=== PATIENT | female | born 1945 | race African-American/Black ===

== ENCOUNTER 2021-05-10 01:58 | Emergency (ER) | payer OTHER ==
[2021-05-10] MEDS ORDERED: NA CHLORIDE 0.9% 1,000 ML ONE (02:51)
[2021-05-10 03:21] LABS: Absolute Lymphocytes (CBC) 2.1 K/uL (0.7-4.9); Basophils % 0.6 % (0-1.3); Hematocrit 32.2 % (36.0-45.0); Lymphocytes % 19.5 % (15.3-44.8)
[2021-05-10 03:38] LABS: ALT/SGPT 20 U/L (12-78); AST/SGOT 14 U/L (15-37); Albumin 3.3 g/dL (3.4-5.0); Alkaline Phosphatase 50 U/L (45-117); BUN Blood Urea Nitrogen 27 mg/dL (7-18); Bicarbonate 24 mmol/L (21-32); Bilirubin Direct < 0.1 mg/dL (0-0.2); Bilirubin Total 0.2 mg/dL (0.2-1.0); Glucose Level 114 mg/dL (74-106); Lipase 93 U/L (73-393); Potassium 4.2 mmol/L (3.5-5.1); Protein, Total 7.6 g/dL (6.4-8.2); Sodium Level 141 mmol/L (136-145)
[2021-05-10 03:58] LABS: Urine Blood Negative (Negative); Urine Glucose Negative (Negative); Urine Protein Negative (Negative); Urine Specific Gravity 1.015 (1.005-1.030)
--- NOTE | 2021-05-10 05:34 | ER ---
Nurse's Notes [facility] Name: Adam Coppola Age: 75 yrs Sex: Female : 1945 Arrival Date: 05/10/2021 Time: 02:02 Bed 13 Private MD: Diagnosis: Flank pain, right;Cholelithiasis Presentation: 05/10 02:27 Chief complaint: Patient states: Reports right side discomfort x 4 days, states "When lp1 in lay on my right side, I feel like something is trying to pop out"; Denies N/V. Coronavirus screen: At this time, the client does not indicate any symptoms associated with coronavirus-19. Ebola Screen: No symptoms or risks identified at this time. Initial Sepsis Screen: Does the patient meet any 2 criteria? No. Patient's initial sepsis screen is negative. Does the patient have a suspected source of infection? No. Patient's initial sepsis screen is negative. Risk Assessment: Do you want to hurt yourself or someone else? Patient reports no desire to harm self or others. Onset of symptoms was May 10, 2021. 02:27 Method Of Arrival: Ambulatory lp1 02:27 Acuity: CHEMO 3 lp1 Triage Assessment: 03:07 General: Appears in no apparent distress. comfortable, obese. Pain: Pain currently is 3 sv1 out of 10 on a pain scale. 03:07 General: Appears in no apparent distress. comfortable, Behavior is calm, cooperative. mk EENT: No signs and/or symptoms were reported regarding the EENT system. Neuro: Level of Consciousness is awake, alert, obeys commands, Oriented to person, place, time, situation, Fashion Stylist are equal bilaterally Moves all extremities. Cardiovascular: Capillary refill < 3 seconds Clubbing of nail beds is absent Pulses are 2+ in right radial artery, right dorsalis pedis artery, left radial artery and left dorsalis pedis artery Rhythm is atrial fibrillation. Respiratory: Airway is patent Trachea midline Respiratory effort is even, unlabored, Respiratory pattern is regular, symmetrical, Breath sounds are clear bilaterally. GI: Abdomen is flat, non-distended, Bowel sounds present X 4 quads. Abd is soft and non tender. GI: Reports lower abdominal pain, diarrhea, Pain is 5 out of 10 on a pain scale. reports RUQ/RLQ abdominal pain 3-4 days, along with diarrhea (ongoing problem). States it feels like 'something dropped' on the R side of the abdomen, rates pain 5/10. States pain is worse when laying on the R side, relieved when takes weight off that side. : No signs and/or symptoms were reported regarding the genitourinary system. Urine is clear. Derm: Skin is intact, is healthy with good turgor, Skin is dry, Skin is pink, warm \\T\\ dry. Skin temperature is warm. Musculoskeletal: Range of motion: intact in all extremities. Historical: - Allergies: 02:42 Lisinopril; lp1 02:42 GABAPENTIN; lp1 - Home Meds: 02:42 Eliquis 5 mg oral tab 1 tab 2 times per day [Active]; furosemide 80 mg Oral tab 1 tab 2 lp1 times per day [Active]; pravastatin 80 mg oral tab 1 tab once daily [Active]; spironolactone 50 mg Oral tab 1 tab once daily [Active]; metformin 1,000 mg Oral tr24 1 tab 2 times per day [Active]; allopurinol 300 mg Oral tab 1 tab once daily [Active]; Betapace 80 mg oral tab 1 tab 2 times per day [Active]; losartan 25 mg oral tab 1 tab once daily [Active]; iron 65mg M/W/ [Active]; Januvia 100 mg oral tab 1 tab once daily [Active]; glimepiride 2 mg Oral tab 1 tab once daily [Active]; - PMHx: 02:42 Diabetes mellitus; CHF; Hypertensive disorder; Atrial fibrillation; HLD; Gallstones; lp1 - PSHx: 02:42 hysterectomy; lp1 - Immunization history:: Adult Immunizations up to date. - Social history:: Smoking status: Patient denies any tobacco usage or history of. Screenin:49 Abuse screen: Denies threats or abuse. Denies injuries from another. Nutritional lp1 screening: No deficits noted. Tuberculosis screening: No symptoms or risk factors identified. Fall Risk None identified. Assessment: 04:06 Reassessment: No changes from previously documented assessment. Patient and/or family mk updated on plan of care and expected duration. Pain level reassessed. Patient is alert, oriented x 3, equal unlabored respirations, skin warm/dry/pink. Vital Signs: 02:27 BP 99 / 63; Pulse 86; Resp 18; Temp 97.9(O); Pulse Ox 100% on R/A; Weight 78.93 kg (R); lp1 Height 5 ft. 5 in. (165.10 cm); Pain 0/10; 03:15 BP 98 / 63; Pulse 84; Resp 21; Temp 98.74; Pulse Ox 100% ; sv1 03:45 BP 99 / 72; Pulse 81; Resp 18; Pulse Ox 98% on R/A; mk 04:15 BP 100 / 79; Pulse 56; Resp 18; Pulse Ox 99% on R/A; mk 04:45 BP 117 / 55; Pulse 74; Resp 18; Pulse Ox 100% on R/A; mk 05:20 BP 104 / 66; Pulse 66; Resp 18; Pulse Ox 98% on R/A; mk 05:43 BP 107 / 70; Pulse 72; Resp 18; Pulse Ox 98% on R/A; mk 02:27 Body Mass Index 28.95 (78.93 kg, 165.10 cm) lp1 [place] Coma Score: 03:15 Eye Response: spontaneous(4). Verbal Response: oriented(5). Motor Response: obeys commands(6). Total: 15. 03:45 Eye Response: spontaneous(4). Verbal Response: oriented(5). Motor Response: obeys mk commands(6). Total: 15. 04:15 Eye Response: spontaneous(4). Verbal Response: oriented(5). Motor Response: obeys mk commands(6). Total: 15. 05:18 Eye Response: spontaneous(4). Verbal Response: oriented(5). Motor Response: obeys mk commands(6). Total: 15. 05:43 Eye Response: spontaneous(4). Verbal Response: oriented(5). Motor Response: obeys mk commands(6). Total: 15. ED Course: 02:02 Patient arrived in ED. ja2 02:17 Gary Wolff MD is Attending Physician. mh7 02:27 Nohemi Marte, RN is Primary Nurse. mk 02:41 Triage completed. lp1 02:42 Arm band placed on. lp1 02:45 Patient has correct armband on for positive identification. Allergy band placed. Bed in mk low position. Call light in reach. Side rails up X 1. supervisor hide house on. Pulse ox on. NIBP on. 02:58 Basic Metabolic Panel Sent. mk 02:59 CBC with Diff Sent. mk 02:59 Hepatic Function Sent. mk 03:00 Maintain EMS IV. Dressing intact. Site clean \\T\\ dry. Gauge \\T\\ site: 20G LAC. mk 03:50 Assisted to bathroom. mk 04:03 No provider procedures requiring assistance completed. Inserted saline lock: 20 gauge mk in right antecubital area, using aseptic technique. 04:14 Abdomen In Process Unspecified. EDMS 04:48 Urine Dipstick-Ancillary Sent. sv1 05:21 US Abdomen Limited In Process Unspecified. EDMS 05:32 Derian Vargas MD is Referral Physician. 7 05:45 IV discontinued, intact, bleeding controlled, No redness/swelling at site. mk Administered Medications: 02:59 CANCELLED (change order to 500ccc): NS 0.9% 1000 ml IV at 1000 ml once mk 03:06 Drug: Sodium Chloride 0.9% 500 ml Route: IVPB; Site: right antecubital; sv1 04:01 Follow up: Response: No adverse reaction; IV Status: Completed infusion; IV Intake: mk 500ml 05:06 Follow up: Response: No adverse reaction; IV Status: Completed infusion; IV Intake: mk 500ml 04:01 CANCELLED (Duplicate Order): Sodium Chloride 0.9% 500 ml IVPB once mk Intake: 04:01 IV: 500ml; Total: 500ml. mk 05:06 IV: 500ml; Total: 1000ml. Outcome: 05:33 Discharge ordered by . [facility] 05:44 Discharged to home ambulatory. mk 05:44 Condition: stable 05:44 Discharge instructions given to patient. 06:04 Patient left the ED. mk Signatures: Dispatcher [employer] EDMS Ashleigh Kim RN RN lp1 Gary Wolff MD MD 7 Kenzie Rivera Steven, RN RN sv1 Nohemi Marte RN RN milena Corrections: (The following items were deleted from the chart) 04:00 03:00 Sodium Chloride 0.9% 500 ml IVPB in right antecubital mk 04:00 03:59 Response: No adverse reaction; IV Intake: 500ml mk
--- NOTE | 2021-05-10 05:34 | EDPHYS ---
Physician Documentation [facility] Name: Adam Coppola Age: 75 yrs Sex: Female : 1945 Arrival Date: 05/10/2021 Time: 02:02 Bed 13 Private MD: ED Physician Gary Wolff HPI: 05/10 02:45 This 75 yrs old Black Female presents to ER via Ambulatory with complaints of RIGHT mh7 SIDE DISCOMFORT. 02:45 The patient complains of pain in the right flank. mh7 02:45 The pain does not radiate. Onset: The symptoms/episode began/occurred 4 day(s) ago. mh7 Modifying factors: The symptoms are alleviated by nothing. the symptoms are aggravated by movement, palpation/percussion. Associated signs and symptoms: Pertinent negatives: diarrhea, dizziness, dysuria, fever, urinary frequency, headache, hematuria, nausea, pain radiating to the lower extremities, vomiting. Severity of pain: At its worst the pain was moderate 3 day(s) ago, in the emergency department the pain has improved moderately. Historical: - Allergies: 02:42 Lisinopril; lp1 02:42 GABAPENTIN; lp1 - Home Meds: 02:42 Eliquis 5 mg oral tab 1 tab 2 times per day [Active]; furosemide 80 mg Oral tab 1 tab 2 lp1 times per day [Active]; pravastatin 80 mg oral tab 1 tab once daily [Active]; spironolactone 50 mg Oral tab 1 tab once daily [Active]; metformin 1,000 mg Oral tr24 1 tab 2 times per day [Active]; allopurinol 300 mg Oral tab 1 tab once daily [Active]; Betapace 80 mg oral tab 1 tab 2 times per day [Active]; losartan 25 mg oral tab 1 tab once daily [Active]; iron 65mg M/W/ [Active]; Januvia 100 mg oral tab 1 tab once daily [Active]; glimepiride 2 mg Oral tab 1 tab once daily [Active]; - PMHx: 02:42 Diabetes mellitus; CHF; Hypertensive disorder; Atrial fibrillation; HLD; Gallstones; lp1 - PSHx: 02:42 hysterectomy; lp1 - Immunization history:: Adult Immunizations up to date. - Social history:: Smoking status: Patient denies any tobacco usage or history of. ROS: 02:45 Constitutional: Negative for fever, chills, and weight loss, Eyes: Negative for injury, mh7 pain, redness, and discharge, ENT: Negative for injury, pain, and discharge, Neck: Negative for injury, pain, and swelling, Cardiovascular: Negative for chest pain, palpitations, and edema, Respiratory: Negative for shortness of breath, cough, wheezing, and pleuritic chest pain, : Negative for injury, bleeding, discharge, and swelling, MS/Extremity: Negative for injury and deformity, Skin: Negative for injury, rash, and discoloration, Neuro: Negative for headache, weakness, numbness, tingling, and seizure, Psych: Negative for depression, anxiety, suicide ideation, homicidal ideation, and hallucinations, Allergy/Immunology: Negative for hives, rash, and allergies, Endocrine: Negative for neck swelling, polydipsia, polyuria, polyphagia, and marked weight changes, Hematologic/Lymphatic: Negative for swollen nodes, abnormal bleeding, and unusual bruising. Exam: 02:45 Constitutional: This is a well developed, well nourished patient who is awake, alert, mh7 and in no acute distress. Head/Face: Normocephalic, atraumatic. Eyes: Pupils equal round and reactive to light, extra-ocular motions intact. Lids and lashes normal. Conjunctiva and sclera are non-icteric and not injected. Cornea within normal limits. Periorbital areas with no swelling, redness, or edema. ENT: Nares patent. No nasal discharge, no septal abnormalities noted. Tympanic membranes are normal and external auditory canals are clear. Oropharynx with no redness, swelling, or masses, exudates, or evidence of obstruction, uvula midline. Mucous membranes moist. Neck: Trachea midline, no thyromegaly or masses palpated, and no cervical lymphadenopathy. Supple, full range of motion without nuchal rigidity, or vertebral point tenderness. No Meningismus. Chest/axilla: Normal chest wall appearance and motion. Nontender with no deformity. No lesions are appreciated. Cardiovascular: Regular rate and rhythm with a normal S1 and S2. No gallops, murmurs, or rubs. Normal PMI, no JVD. No pulse deficits. Respiratory: Lungs have equal breath sounds bilaterally, clear to auscultation and percussion. No rales, rhonchi or wheezes noted. No increased work of breathing, no retractions or nasal flaring. Skin: Warm, dry with normal turgor. Normal color with no rashes, no lesions, and no evidence of cellulitis. MS/ Extremity: Pulses equal, no cyanosis. Neurovascular intact. Full, normal range of motion. Neuro: Awake and alert, GCS 15, oriented to person, place, time, and situation. Cranial nerves II-XII grossly intact. Motor strength 5/5 in all extremities. Sensory grossly intact. Cerebellar exam normal. Normal gait. Psych: Awake, alert, with orientation to person, place and time. Behavior, mood, and affect are within normal limits. 02:45 Abdomen/GI: Inspection: abdomen appears normal, Bowel sounds: normal, in all quadrants, mh7 Palpation: mild abdominal tenderness, in the right upper quadrant, mass, is not appreciated, rebound tenderness, is not appreciated, voluntary guarding, is not appreciated, involuntary guarding, is not appreciated, no appreciated organomegaly, Rectal exam: the exam is deferred, because of patient request, Indicators: McBurney's point is not tender, Gregory's sign is negative, Rovsing's sign is negative, Obturator sign is negative, Psoas sign is negative, Liver: no appreciated palpable abnormalities, Hernia: not appreciated. 02:45 Back: normal spinal alignment noted, CVA tenderness, is absent, vertebral tenderness, is not appreciated, muscle spasm, is not present. Vital Signs: 02:27 BP 99 / 63; Pulse 86; Resp 18; Temp 97.9(O); Pulse Ox 100% on R/A; Weight 78.93 kg (R); lp1 Height 5 ft. 5 in. (165.10 cm); Pain 0/10; 03:15 BP 98 / 63; Pulse 84; Resp 21; Temp 98.74; Pulse Ox 100% ; sv1 03:45 BP 99 / 72; Pulse 81; Resp 18; Pulse Ox 98% on R/A; mk 04:15 BP 100 / 79; Pulse 56; Resp 18; Pulse Ox 99% on R/A; mk 04:45 BP 117 / 55; Pulse 74; Resp 18; Pulse Ox 100% on R/A; mk 05:20 BP 104 / 66; Pulse 66; Resp 18; Pulse Ox 98% on R/A; mk 05:43 BP 107 / 70; Pulse 72; Resp 18; Pulse Ox 98% on R/A; mk 02:27 Body Mass Index 28.95 (78.93 kg, 165.10 cm) lp1 [place] Coma Score: 03:15 Eye Response: spontaneous(4). Verbal Response: oriented(5). Motor Response: obeys mk commands(6). Total: 15. 03:45 Eye Response: spontaneous(4). Verbal Response: oriented(5). Motor Response: obeys mk commands(6). Total: 15. 04:15 Eye Response: spontaneous(4). Verbal Response: oriented(5). Motor Response: obeys mk commands(6). Total: 15. 05:18 Eye Response: spontaneous(4). Verbal Response: oriented(5). Motor Response: obeys mk commands(6). Total: 15. 05:43 Eye Response: spontaneous(4). Verbal Response: oriented(5). Motor Response: obeys mk commands(6). Total: 15. MDM: 05:29 Differential diagnosis: nephrolithiasis, pyelonephritis, UTI, diverticulitis. Data [facility] reviewed: vital signs, nurses notes, lab test result(s), CBC, electrolytes, urinalysis, EKG, radiologic studies, CT scan, ultrasound. Data interpreted: Pulse oximetry: on room air is 98 %. Interpretation: normal. Counseling: I had a detailed discussion with the patient and/or guardian regarding: the historical points, exam findings, and any diagnostic results supporting the discharge/admit diagnosis, lab results, radiology results, the need for outpatient follow up, a general surgeon, to return to the emergency department if symptoms worsen or persist or if there are any questions or concerns that arise at home. Response to treatment: the patient's symptoms have resolved after treatment, the patient's blood pressure is in an acceptable range, mental status has returned to baseline, the patient no longer shows bradycardia, the patient is not short of breath, the patient is not tachycardic, the patient's pain is gone, the patient's temperature has normalized. 05:31 Refusal of service: The patient/guardian displays adequate decision making capability [facility] and despite a detailed discussion of alternatives, benefits, risks, and consequences refuses: Medications. 05:33 Patient medically screened. [facility] 05/10 02:38 Order name: Basic Metabolic Panel; Complete Time: 03:43 [facility] 05/10 02:38 Order name: CBC with Diff; Complete Time: 03:43 [facility] 05/10 02:38 Order name: Hepatic Function; Complete Time: 03:43 [facility] 05/10 02:38 Order name: Lipase; Complete Time: 03:43 [facility] 05/10 03:58 Order name: Urine Dipstick-Ancillary [facility] 05/10 02:38 Order name: IV Saline Lock; Complete Time: 02:58 [facility] 05/10 02:38 Order name: Labs collected and sent; Complete Time: 02:58 [facility] 05/10 02:38 Order name: EKG; Complete Time: 02:39 [facility] 05/10 03:58 Order name: Abdomen [facility] 05/10 04:59 Order name: US Abdomen Limited [facility] 05/10 02:38 Order name: Urine Dipstick-Ancillary (obtain specimen); Complete Time: 04:01 [facility] 05/10 02:38 Order name: EKG - Nurse/Tech; Complete Time: 02:59 [facility] Administered Medications: 02:59 CANCELLED (change order to 500ccc): NS 0.9% 1000 ml IV at 1000 ml once mk 03:06 Drug: Sodium Chloride 0.9% 500 ml Route: IVPB; Site: right antecubital; sv1 04:01 Follow up: Response: No adverse reaction; IV Status: Completed infusion; IV Intake: mk 500ml 05:06 Follow up: Response: No adverse reaction; IV Status: Completed infusion; IV Intake: mk 500ml 04:01 CANCELLED (Duplicate Order): Sodium Chloride 0.9% 500 ml IVPB once mk Disposition Summary: 05/10/21 05:33 Discharge Ordered Location: Home [facility] Problem: an acute exacerbation [facility] Symptoms: have improved [facility] Condition: Stable [facility] Diagnosis - Flank pain, right [facility] - Cholelithiasis [facility] Followup: [facility] - With: Private Physician - When: 1 - 2 days - Reason: Worsening of condition, Recheck today's complaints, Continuance of care, Re-evaluation by your physician Followup: [facility] - With: Derian Vargas MD - When: 1 - 2 days - Reason: Worsening of condition, Recheck today's complaints Discharge Instructions: - Discharge Summary Sheet 7 - Cholelithiasis, [id number] 7 - Flank Pain, Adult, [id number] [facility] Forms: - Medication Reconciliation Form 7 - Thank You Letter [facility] - Antibiotic Education [facility] - Prescription Opioid Use [facility] Prescriptions: - dicyclomine 10 mg Oral Capsule - take 1 capsule by ORAL route 4 times per day As needed; 20 capsule; Refills: 0, mh7 Product Selection Permitted Signatures: Dispatcher [employer] EDMS Ashleigh iKm, RN RN lp1 Gary Wolff MD MD 7 Thuan Doan RN RN sv1 Nohemi Marte RN RN mk Corrections: (The following items were deleted from the chart) 02:48 02:45 The patient presents with [place] [id number] 02:59 02:39 NS 0.9% 1000 ml IV at 1000 ml once ordered. [facility] 03:58 02:40 Abdomen Pelvis W Con+CT.RAD.BRZ ordered. EDMS EDMS 04:01 03:00 Sodium Chloride 0.9% 500 ml IVPB once ordered. [facility] 04:01 03:00 Sodium Chloride 0.9% 500 ml IVPB once given. [facility] 04:01 04:00 Sodium Chloride 0.9% 500 ml IVPB once ordered. [facility]
[2021-05-10 06:11] VITALS: TEMP 97.9
[2021-05-10 06:33] VITALS: O2SAT 98
[2021-05-10 06:35] VITALS: BP 107/70
--- NOTE | 2021-05-10 07:57 | RAD REPORT ---
EXAM DESCRIPTION: US - Abdomen Exam Limited - 05/10/2021 5:22 am CLINICAL HISTORY: RUQ pain;Abd pain COMPARISON: Abdomen Pelvis Wo Contrast dated 05/10/2021 FINDINGS: Cholelithiasis noted within the gallbladder. The gallbladder wall is not thickened, measur ing under 2 millimeters. The common bile duct is nondilated measuring 3 millimeters. Sonographic Murp hy sign is negative. IMPRESSION: Cholelithiasis but no sonographic evidence acute cholecystitis.
--- NOTE | 2021-05-10 08:09 | EKG ---
Test Date: 2021-05-10 Test Time: 02:46:11 Consumer Education Specialist: MEASUREMENT RESULTS: Intervals: Rate: 81 [place]: QRSD: 66 QT: 392 QTc: 455 [place]: P: IL: QRS: 49 T: -7 INTERPRETIVE STATEMENTS: Atrial fibrillation Nonspecific T wave abnormality Abnormal ECG No previous ECG available for comparison Electronically Signed On 05-10-21 08:08:05 FINE WIRE DRAWER by Rafa Maynard
--- NOTE | 2021-05-10 12:20 | RAD REPORT ---
EXAM DESCRIPTION: CT - Abdomen Pelvis Wo Contrast - 05/10/2021 6:54 am CLINICAL HISTORY: The patient is 75 years old and is Female; ABD PAIN TECHNIQUE: Axial computed tomography images of the abdomen and pelvis without intravenous contrast. Sagittal and coronal reformatted images were created and reviewed. This CT exam was performed usi ng one or more of the following dose reduction techniques: automated exposure control, adjustment o f the mA and/or kV according to patient size, and/or use of iterative reconstruction technique. COMPARISON: No relevant prior studies available. FINDINGS: Lung bases: Unremarkable. No mass. No consolidation. ABDOMEN: Liver: Unremarkable. Gallbladder and bile ducts: Multiple gallstones in the gallbladder. No ductal dilation. Pancreas: Unremarkable. No ductal dilation. Spleen: Unremarkable. No splenomegaly. Adrenals: Unremarkable. No mass. Kidneys and ureters: Unremarkable. No obstructing stones. No hydronephrosis. Stomach and bowel: Unremarkable. No obstruction. No mucosal thickening. PELVIS: Appendix: No findings to suggest acute appendicitis. Bladder: Unremarkable. No stones. Reproductive: Unremarkable as visualized. ABDOMEN and PELVIS: Intraperitoneal space: Unremarkable. No free air. No significant fluid collection. Bones/joints: No acute fracture. No dislocation. Soft tissues: Unremarkable. Vasculature: Unremarkable. No abdominal aortic aneurysm. Lymph nodes: Unremarkable. No enlarged lymph nodes. IMPRESSION: 1. No acute finding. 2. Multiple gallstones in the gallbladder. Electronically signed by: Victorino Abdi MD 05/10/2021 4:52 AM THERAPIST'S ASSISTANT Due to temporary technical issues with the PACS/Fluency reporting system, reports are being signed by the in house radiologist without review as a courtesy to ensure prompt reporting. The interpreting r adiologist is fully responsible for the content of the report.
== END 2021-05-10 06:04 | disposition home or self-care (01) ==
LOC: ER 01:58
DX: K80.20 Calculus of gallbladder without cholecystitis without obstruction (principal); I10 Essential (primary) hypertension; E11.9 Type 2 diabetes mellitus without complications; I48.91 Unspecified atrial fibrillation; Z79.01 Long term (current) use of anticoagulants; Z88.8 Allergy status to other drugs, medicaments and biological substances
CPT/HCPCS: 93005; 85025; 80048; 36415; 80076; 81003; 83690; 74176; 76705; J7030; 96365; 99284

== ENCOUNTER 2022-01-25 14:52 | Inpatient (IN) | payer OTHER ==
--- OUTSIDE RECORDS SUMMARY | 2022-01-25 14:59 | XMS REPORT | Continuity of Care Document ---
:1945 Author Organization [facility] t Address [address] [place] [address] Care Team Providers Name Role Phone Rocky Navarro DO Primary Care Physician Nisha Hoang Attending Clinician Florentin Avina MD Attending Clinician FLORENTIN AVINA Attending Clinician Unavailable Doctor Unassigned, [place] Attending Clinician Unavailable Payers Payer Name Policy Type Policy Number Effective Date Expiration Date S ource Problems Condition Condition Condition Status Onset Resolution Last Treating Co mments Source Name Details Category Date Date Treatment Clinician Date No known No known Disease Unive rs active active ity of problems problems [facility] Allergies, Adverse Reactions, Alerts Allergy Allergy Status Severity Reaction(s) Onset Inactive Treating Comm ents Source Name Type Date Date Clinician LISINOPR DRUG Active COUGH 2015-0 Univers [place] INGREDI 12-20 ity of 00:00: [place] 00 [facility] Lisinopr Propensi Active Cough 2015-0 uncontrol Uni vers il ty to 12-20 lable ity of adverse 00:00: [place] reaction 00 Medical s [place] Social History Social Habit Start Date Stop Date Quantity Comments Source Exposure to 2021-12-05 2021-12-15 Not sure [facility] SARS-CoV-2 (event) 00:00:00 10:16:00 Medica l Branch Alcohol intake 2016-01-20 2016-01-20 0 /d [facility] 00:00:00 00:00:00 Medical [place] Sex [birth year] [facility] [place] 00:00:00 00:00:00 Medical Branch Smoking Status Start Date Stop Date Source Never smoked tobacco [facility] Medications Ordered Filled Start Stop Current Ordering Indication Dosage Frequency Signature Comments Components Source Medication Medication Date Date Medication? Clinician (SIG) Name Name loratadine 2021- Yes [id number] 10mg Take 1 Univers 10 mg 12-15 tablet by ity of tablet 00:00: 04:59 mouth in [place] 00 :00 the Medical morning Branch for 30 days. fluticasone 2021- Yes [id number] 1{spray Use 1 Univers propionate 12-15 } [place] in ity of 50 00:00: 04:59 each [place] mcg/actuati 00 :00 nostril in Id dical on nasal the Branch spray morning for 30 days. apixaban Yes 5mg Take 5 mg Univ ers (ELIQUIS) 5 8-31 by mouth 2 it y of mg tablet 11:47: (two) [place] [address] times Medical daily. Branch furosemide Yes 20mg Take 20 mg U nivers (LASIX) 20 8-31 by mouth 2 ity of mg tablet 11:47: (two) [place] 26 times Medical daily. Branch glimepiride Yes 4mg Take 4 mg U nivers (AMARYL) 4 8-31 by mouth ity o f mg tablet 11:47: [place] with [place] 26 breakfast. Medical Branch losartan Yes 25mg Take 25 mg Uni vers (COZAAR) 25 8-31 by mouth ity of mg tablet 11:47: daily. [address] pravastatin Yes 80mg Take 80 mg Univers (PRAVACHOL) 8-31 by mouth ity of 80 mg 11:47: daily. [place] [address] Medical Branch spironolact Yes 50mg Take 50 mg Univers one 8-31 by mouth ity of (ALDACTONE) 11:47: [place]. [place] 50 [place] 26 Medical tablet Branch METFORMIN Yes 100mg Take 100 Uni vers HCL 8-31 mg by ity of (METFORMIN 11:47: mouth [place] ORAL) 26 every Medical morning. Branch sitaGLIPtin Yes 100mg Take 100 U nivers (JANUVIA) 8-31 mg by ity of 100 mg 11:47: mouth [place] tablet 26 every Medical morning. Branch ERGOCALCIFE Yes Take by Uni vers ROL, 8 mouth ity of VITAMIN D2, 11:47: daily. [place] (VITAMIN D Medical ORAL) Branch IRON, Yes Take by Univers FERROUS 01-19 mouth ity of SULFATE, 11:47: daily. [place] ORAL 26 Medical Branch lactulose Yes 10g Take 10 g Uni vers (CEPHULAC) 01-19 by mouth 2 ity of 10 gram 11:47: (two) [place] packet 26 times Medical daily. Branch apixaban Yes 5mg Take 5 mg Univ ers (ELIQUIS) 5 01-19 by mouth 2 it y of mg tablet 11:47: (two) [place] 26 times Medical daily. Branch furosemide Yes 20mg Take 20 mg U nivers (LASIX) 20 01-19 by mouth 2 ity of mg tablet 11:47: (two) [place] 26 times Medical daily. Branch glimepiride Yes 4mg Take 4 mg U nivers (AMARYL) 4 01-19 by mouth ity o f mg tablet 11:47: daily with [place] 26 breakfast. Medical Branch losartan Yes 25mg Take 25 mg Uni vers (COZAAR) 25 01-19 by mouth ity of mg tablet 11:47: daily. [place] [address] Medical Branch pravastatin Yes 80mg Take 80 mg Univers (PRAVACHOL) 01-19 by mouth ity of 80 mg 11:47: daily. [place] tablet 26 Medical Branch spironolact Yes 50mg Take 50 mg Univers one 01-19 by mouth ity of (ALDACTONE) 11:47: daily. [place] 50 mg 26 Medical tablet Branch METFORMIN Yes 100mg Take 100 Uni vers HCL 8-31 mg by ity of (METFORMIN 11:47: mouth [place] ORAL) 26 every Medical morning. Branch sitaGLIPtin Yes 100mg Take 100 U nivers (JANUVIA) 8-31 mg by ity of 100 mg 11:47: mouth [place] tablet 26 every Medical morning. Branch ERGOCALCIFE Yes Take by Uni vers ROL, 8- mouth ity of VITAMIN D2, 11:47: daily. [place] (VITAMIN D 26 Medical ORAL) [place] IRON, Yes [facility] by [facility] FERROUS 01-19 mouth ity of SULFATE, 11:47: daily. [place] ORAL 26 [facility] lactulose Yes 10g Take 10 g Uni vers (CEPHULAC) 01-19 by mouth 2 ity of 10 gram 11:47: (two) [place] packet 26 times Medical daily. Branch Vital Signs Vital Name Observation Time Observation Value Comments Source Systolic blood 2021-12-15 15:26:00 130 mm[Hg] [facility]iver [facility] Diastolic blood 2021-12-15 15:26:00 75 mm[Hg] Unive rsity [facility] Heart rate 2021-12-15 15:26:00 89 /min [facility] Body temperature 2021-12-15 15:26:00 37.11 [facility] Res[facility] rate 2021-12-15 15:26:00 19 /min [facility] Body height 2021-12-15 15:26:00 165.1 cm [facility] Body weight 2021-12-15 15:26:00 80.196 kg [facility] BMI 2021-12-15 15:26:00 29.42 kg/m2 [facility] Oxygen saturation in 2021-12-15 15:26:00 100 /min [facility] Arterial blood by [facility] Pulse oximetry [place] Procedures Procedure Date / Time Performed Performing Clinician Sour e ASSIGNMENT OF BENEFITS 2021-12-15 15:18:25 Doctor Unassigned, No [facility] Encounters Start End Encounter Admission Attending Care Care Encounter Source Date/Time Date/Time Type Type Clinicians Facility Department ID 2021-12-15 2021-12-15 Urgent LindsayNisha [facility] [id number] Univers 10:20:00 10:40:00 Adele Avina [facility] [id number] ity [facility] [id number] Harry as KEELY?BLEA [id number] [address] MEDICAL OFFICE BUILDING 2021-12-15 2021-12-15 Outpatient R FABRICE [facility] [id number] Univers 10:20:00 10:20:00 FLORENTIN quick of [facility] 2021-12-15 2021-12-15 Orders Doctor LIDIA [id number] Univers 00:00:00 00:00:00 Only Unassigned, JATIN [id number] ity of [place] [facility] [id number] [facility] as [phone] [place] [address] Branch Results This patient has no known results.
[2022-01-25 16:53] LABS: Hematocrit 36.2 % (36.0-45.0); Lymphocytes % 14.5 % (15.3-44.8); MCV 78.1 fL (80-100); MPV 8.4 fL (7.6-11.3); RBC Red Blood Cell Count 4.63 M/uL (3.86-4.86)
[2022-01-25 16:54] LABS: Protime INR 1.58
[2022-01-25 17:05] LABS: Magnesium 2.4 mg/dL (1.8-2.4); Potassium 3.9 mmol/L (3.5-5.1); Troponin High Sensitivity 50.8 pg/mL (<58.9)
--- NOTE | 2022-01-25 18:19 | ER ---
Nurse's Notes [facility] Name: Adam Coppola Age: 76 yrs Sex: Female : 1945 Arrival Date: 01/25/2022 Time: 14:55 Bed 3 Private MD: Rocky Navarro Diagnosis: Bradycardia, unspecified;Syncope Near;Unspecified kidney failure Presentation: 01/25 15:31 Chief complaint: Patient states: I have been monitoring my blood pressure and pulse and bm7 my pulse has been really low at home so I called my lawn caretaker and they told me to come here. Coronavirus screen: At this time, the client does not indicate any symptoms associated with coronavirus-19. Ebola Screen: No symptoms or risks identified at this time. Initial Sepsis Screen: Does the patient meet any 2 criteria? No. Patient's initial sepsis screen is negative. Does the patient have a suspected source of infection? No. Patient's initial sepsis screen is negative. Risk Assessment: Do you want to hurt yourself or someone else? Patient reports no desire to harm self or others. Onset of symptoms is unknown. 15:31 Method Of Arrival: Ambulatory bm7 15:31 Acuity: CHEMO 2 bm7 Triage Assessment: 15:32 General: Appears in no apparent distress. comfortable, Behavior is calm, cooperative, bm7 appropriate for age. Pain: Denies pain. EENT: No deficits noted. No signs and/or symptoms were reported regarding the EENT system. Neuro: No deficits noted. Cardiovascular: Rhythm is junctional rhythm Chest pain is denied. Respiratory: No deficits noted. GI: No deficits noted. No signs and/or symptoms were reported involving the gastrointestinal system. : No deficits noted. No signs and/or symptoms were reported regarding the genitourinary system. Derm: No deficits noted. No signs and/or symptoms reported regarding the dermatologic system. Musculoskeletal: No deficits noted. No signs and/or symptoms reported regarding the musculoskeletal system. Historical: - Allergies: 15:32 GABAPENTIN; bm7 15:32 Lisinopril; bm7 - Home Meds: 15:32 allopurinol 300 mg Oral tab 1 tab once daily [Active]; Betapace 80 mg Oral tab 1 tab 2 bm7 times per day [Active]; spironolactone 50 mg Oral tab 1 tab once daily [Active]; pravastatin 80 mg Oral tab 1 tab once daily [Active]; metformin 1,000 mg Oral tr24 1 tab 2 times per day [Active]; Januvia 100 mg Oral tab 1 tab once daily [Active]; furosemide 80 mg Oral tab 1 tab 2 times per day [Active]; Eliquis 5 mg Oral tab 1 tab 2 times per day [Active]; glimepiride 2 mg Oral tab 1 tab once daily [Active]; iron 65mg // [Active]; losartan 25 mg Oral tab 1 tab once daily [Active]; - PMHx: 15:32 Atrial fibrillation; CHF; diabetes mellitus; GALLSTONES; HLD; Hypertensive disorder; bm7 - PSHx: 15:32 hysterectomy; bm7 - Immunization history:: Adult Immunizations up to date, Client reports receiving the 2nd dose of the Covid vaccine, Client reports receiving the 1st dose of the Covid vaccine. - Social history:: Smoking status: Patient denies any tobacco usage or history of. Screenin:38 Abuse screen: Denies threats or abuse. Denies injuries from another. Nutritional iw screening: No deficits noted. Tuberculosis screening: No symptoms or risk factors identified. Fall Risk IV access (20 points). Assessment: 16:30 General: Appears in no apparent distress. comfortable, Behavior is calm, cooperative. iw Pain: Denies pain. Neuro: Level of Consciousness is awake, alert, obeys commands, Oriented to person, place, time, situation, Moves all extremities. Full function. Neuro: Reports dizziness. Cardiovascular: Capillary refill < 3 seconds in bilateral fingers Patient's skin is warm and dry. Cardiovascular: Rhythm is regular. Respiratory: Respiratory effort is even, unlabored, Respiratory pattern is regular, symmetrical. Derm: Skin is intact, is healthy with good turgor. Musculoskeletal: Range of motion: intact in all extremities. 17:10 Reassessment: assisted to bathroom via wheelchair. iw 17:38 Reassessment: Patient appears in no apparent distress at this time. Patient and/or iw family updated on plan of care and expected duration. Pain level reassessed. Patient is alert, oriented x 3, equal unlabored respirations, skin warm/dry/pink. 19:41 General: Appears in no apparent distress. comfortable, Behavior is calm, cooperative. kd3 Neuro: Level of Consciousness is awake, alert, obeys commands, Oriented to person, place, time, situation. Cardiovascular: Patient's skin is warm and dry. Respiratory: Airway is patent Trachea midline Respiratory effort is even, unlabored, Respiratory pattern is regular, symmetrical. Vital Signs: 15:05 BP 124 / 60; Pulse 43; Resp 16; Temp 98.0(TE); Pulse Ox 100% on R/A; Weight 78.47 kg; bm7 Height 5 ft. 5 in. (165.10 cm); Pain 0/10; 17:38 BP 112 / 63; Pulse 38; Resp 16; Pulse Ox 97% on R/A; iw 18:46 BP 113 / 59; Pulse 38; Resp 16; Pulse Ox 97% on R/A; Pain 0/10; iw 19:32 BP 120 / 61; Pulse 38; Resp 14; Pulse Ox 100% on R/A; kd3 21:24 BP 124 / 63; Pulse 44; Resp 18; Pulse Ox 100% on R/A; kd3 15:05 Body Mass Index 28.79 (78.47 kg, 165.10 cm) bm7 ED Course: 14:55 Patient arrived in ED. am2 14:55 Rocky Navarro DO is Private Physician. am2 15:05 Arm band placed on left wrist. EKG completed in triage. Results shown to MD. bm7 15:28 Ankit Barnes PA is PHCP. cp 15:28 Antonino Victoria MD is Attending Physician. cp 15:32 Triage completed. 7 15:38 Cassy Webb RN is Primary Nurse. iw 18:17 Piyush Maurer is Hospitalizing Provider. cp 19:42 Patient has correct armband on for positive identification. kd3 21:23 No provider procedures requiring assistance completed. Patient admitted, IV remains in kd3 place. Administered Medications: No medications were administered Medication: 19:17 VIS not applicable for this client. iw Outcome: 18:18 Decision to Hospitalize by Provider. cp 21:23 Admitted to Med/surg room 409. kd3 21:23 Condition: stable 21:23 Discharge instructions given to patient, family, Instructed on the need for admit, Demonstrated understanding of instructions. 21:24 Patient left the ED. kd3 Signatures: Cassy Webb RN RN iw Page, Ankit, Katherine Ziegler cp am2 Marlin Rodriguez, RN RN bm7 Michaela Coleman RN RN kd3 Corrections: (The following items were deleted from the chart) 15:31 15:05 Pulse 80bpm; gonzalez bm7
--- NOTE | 2022-01-25 18:19 | EDPHYS ---
Physician Documentation [facility] Name: Adam Coppola Age: 76 yrs Sex: Female : 1945 Arrival Date: 01/25/2022 Time: 14:55 Bed 3 Private MD: Rocky Navarro ED Physician Antonino Victoria HPI: 01/25 15:29 This 76 yrs old Black Female presents to ER via Unassigned with complaints of Low heart cp rate. 15:30 Onset: The symptoms/episode began/occurred 2 month(s) ago. cp 15:30 Associated signs and symptoms: Pertinent positives: dizziness, lightheaded, near cp syncope, Pertinent negatives: abdominal pain, fever, shortness of breath, shortness of breath. Historical: - Allergies: 15:32 GABAPENTIN; bm7 15:32 Lisinopril; bm7 - Home Meds: 15:32 allopurinol 300 mg Oral tab 1 tab once daily [Active]; Betapace 80 mg Oral tab 1 tab 2 bm7 times per day [Active]; spironolactone 50 mg Oral tab 1 tab once daily [Active]; pravastatin 80 mg Oral tab 1 tab once daily [Active]; metformin 1,000 mg Oral tr24 1 tab 2 times per day [Active]; Januvia 100 mg Oral tab 1 tab once daily [Active]; furosemide 80 mg Oral tab 1 tab 2 times per day [Active]; Eliquis 5 mg Oral tab 1 tab 2 times per day [Active]; glimepiride 2 mg Oral tab 1 tab once daily [Active]; iron 65mg // [Active]; losartan 25 mg Oral tab 1 tab once daily [Active]; - PMHx: 15:32 Atrial fibrillation; CHF; diabetes mellitus; GALLSTONES; HLD; Hypertensive disorder; bm7 - PSHx: 15:32 hysterectomy; bm7 - Immunization history:: Adult Immunizations up to date, Client reports receiving the 2nd dose of the Covid vaccine, Client reports receiving the 1st dose of the Covid vaccine. - Social history:: Smoking status: Patient denies any tobacco usage or history of. ROS: 15:30 Constitutional: Negative for body aches, chills, fever, poor PO intake. cp 15:30 Cardiovascular: Negative for chest pain, edema, palpitations. cp 15:30 Respiratory: Negative for cough, shortness of breath, wheezing. cp 15:30 Eyes: Negative for injury, pain, redness, and discharge. cp 15:30 ENT: Negative for drainage from ear(s), ear pain, sore throat, difficulty swallowing, difficulty handling secretions. 15:30 Abdomen/GI: Negative for abdominal pain, nausea, vomiting, and diarrhea. 15:30 Neuro: Positive for dizziness, near syncope, Negative for altered mental status, headache, numbness, syncope, weakness. 15:30 All other systems are negative. Exam: 15:33 ECG was reviewed by the Attending Physician. cp 15:35 Constitutional: The patient appears in no acute distress, alert, awake, comfortable, cp non-diaphoretic, non-toxic, well developed, well nourished. 15:35 Head/Face: Normocephalic, atraumatic. cp 15:35 Eyes: Periorbital structures: appear normal, Conjunctiva: normal, no exudate, no injection, Sclera: no appreciated abnormality, Lids and lashes: appear normal, bilaterally. 15:35 ENT: External ear(s): are unremarkable, Nose: is normal, Mouth: Lips: moist, Oral mucosa: pink and intact, moist, Posterior pharynx: is normal, airway is patent, no erythema, no exudate. 15:35 Neck: ROM/movement: is normal, is supple, without pain, no range of motions limitations. 15:35 Chest/axilla: Inspection: normal. 15:35 Cardiovascular: Rate: bradycardic, Rhythm: regular, Edema: is not appreciated, JVD: is not appreciated. 15:35 Respiratory: the patient does not display signs of respiratory distress, Respirations: normal, no use of accessory muscles, no retractions, labored breathing, is not present, Breath sounds: are clear throughout, no decreased breath sounds, no stridor, no wheezing. 15:35 Abdomen/GI: Exam negative for discomfort, distension, guarding, Inspection: abdomen appears normal. 15:35 Back: pain, is absent, ROM is normal. 15:35 Neuro: Orientation: to person, place \T\ time. Mentation: is normal, Cerebellar function: is grossly normal, Motor: moves all fours, strength is normal, Sensation: is normal, Gait: is steady. Vital Signs: 15:05 BP 124 / 60; Pulse 43; Resp 16; Temp 98.0(TE); Pulse Ox 100% on R/A; Weight 78.47 kg; bm7 Height 5 ft. 5 in. (165.10 cm); Pain 0/10; 17:38 BP 112 / 63; Pulse 38; Resp 16; Pulse Ox 97% on R/A; iw 18:46 BP 113 / 59; Pulse 38; Resp 16; Pulse Ox 97% on R/A; Pain 0/10; iw 19:32 BP 120 / 61; Pulse 38; Resp 14; Pulse Ox 100% on R/A; kd3 21:24 BP 124 / 63; Pulse 44; Resp 18; Pulse Ox 100% on R/A; kd3 15:05 Body Mass Index 28.79 (78.47 kg, 165.10 cm) bm7 MDM: 15:46 Patient medically screened. cp 17:50 Data reviewed: vital signs, nurses notes, lab test result(s), EKG, radiologic studies, cp plain films, I have discussed the patient's presentation/case with the attending Emergency Department Physician; and as a result, I will admit patient. 17:50 Test interpretation: by ED physician or midlevel provider: ECG, plain radiologic cp studies. 18:15 Counseling: I had a detailed discussion with the patient and/or guardian regarding: the cp historical points, exam findings, and any diagnostic results supporting the discharge/admit diagnosis, lab results, radiology results, the need for further work-up and treatment in the hospital. 18:15 Physician consultation: Lexie FIGUEROA was called at 18:15, was contacted at 18:15, regarding admission, to the telemetry unit. patient's condition. 01/25 15:29 Order name: Basic Metabolic Panel cp 01/25 15:29 Order name: CBC with Diff cp 01/25 15:29 Order name: Magnesium cp 01/25 15:29 Order name: NT PRO-BNP cp 01/25 15:29 Order name: PT-INR cp 01/25 15:29 Order name: Troponin HS cp 01/25 16:54 Order name: Protime (+INR); Complete Time: 17:07 EDMS 01/25 17:07 Interpretation: Abnormal: PT 17.5. cp 01/25 16:56 Order name: CBC with Automated Diff; Complete Time: 17:07 EDMS / 17:07 Interpretation: Normal except: WBC 13.80; HGB 11.2; MCV 78.1; MCH 24.1; MCHC 30.9; RDW cp 16.9; LYM% 14.5; NEUT A 10.1. 01/25 17:08 Order name: Basic Metabolic Panel; Complete Time: 17:42 EDMS 01/25 17:43 Interpretation: Normal except: GLUC 136; BUN 77; CRE 3.06; GFR 15; CA 10.3. 01/25 17:08 Order name: Troponin High Sensitivity; Complete Time: 17:42 EDMS 01/25 17:08 Order name: NT PRO-BNP; Complete Time: 17:42 EDMS 01/25 17:43 Interpretation: Abnormal: NT PRO-BNP 821. 01/25 17:08 Order name: Magnesium; Complete Time: 17:42 EDMS 01/25 17:43 Interpretation: MG 2.4; Reviewed. 01/25 17:52 Order name: SARS RAPID 01/25 19:29 Order name: SARS-COV-2 Antigen Rapid EDWV 01/25 15:29 Order name: XRAY Chest (1 view) 01/25 15:29 Order name: EKG; Complete Time: 22:29 01/25 15:29 Order name: Cardiac monitoring; Complete Time: 16:33 01/25 15:29 Order name: EKG - Nurse/Tech; Complete Time: 16:33 01/25 15:29 Order name: IV Saline Lock; Complete Time: 16:33 01/25 15:29 Order name: Labs collected and sent; Complete Time: 16:33 01/25 15:29 Order name: O2 Per Protocol; Complete Time: 16:33 cp 01/25 15:29 Order name: O2 Sat Monitoring; Complete Time: 16:33 cp 01/25 18:53 Order name: RAD EDWV EC:33 Rate is 43 beats/min. Rhythm is regular. QRS interval is normal. QT interval is normal. cp T waves are Inverted in lead aVR. Interpreted by me. Reviewed by me. Administered Medications: No medications were administered Disposition Summary: 01/25/22 18:18 Hospitalization Ordered Hospitalization Status: Inpatient Admission cp Provider: Baidoo, Piyush cp Location: Telemetry/MedSurg (Inpatient) cp Condition: Stable cp Problem: new cp Symptoms: are unchanged cp Bed/Room Type: Standard cp Room Assignment: 409(01/25/22 20:24) cg Diagnosis - Bradycardia, unspecified cp - Syncope Near cp - Unspecified kidney failure cp Forms: - Medication Reconciliation Form cp - SBAR form cp Addendum: 01/26/2022 22:33 Co-signature as Attending Physician, Antonino Victoria MD. r n Signatures: Dispatcher [employer] EDMS Antonino Victoria MD MD rn Page, Corey, PA PA cp Elizabeth Watkins RN RN cg Marlin Rodriguez RN RN bm7 Corrections: (The following items were deleted from the chart) 01/25 20:24 18:18 cp cg
--- NOTE | 2022-01-25 18:52 | RAD REPORT ---
EXAM DESCRIPTION: RAD - Chest Single View - 01/25/2022 6:36 pm CLINICAL HISTORY: dizziness COMPARISON: <Comparisons> FINDINGS: Lines: None. Lungs: No evidence of edema or pneumonia. Pleural: No significant pleural effusions or pneumothorax. Cardiac: Heart size at upper limits of normal. Mediastinum: Within normal limits. Bones: No acute fractures. Other: None IMPRESSION: No acute cardiopulmonary disease.
[2022-01-25 19:28] LABS: SARS-CoV-2 Antigen Rapid Res Negative (Negative)
--- NOTE | 2022-01-25 19:56 | P.HP ---
Certification for Inpatient Patient admitted to: Inpatient With expected LOS: <2 Midnights Patient will require the following post-hospital care: None Practitioner: I am a practitioner with admitting privileges, knowledge of patient current condition, hospital course, and medical plan of care. Services: Services provided to patient in accordance with Admission requirements found in Title 42 Section 412.3 of the Code of Federal Regulations Patient History Date of Service: 01/25/22 Primary Care Provider: Melanie Reason for admission: Bradycardia History of Present Illness: Patient is a 76 year-old female with history of afib on eliquis, chronic diastolic CHF, non-insulin dependent type 2 diabetes, hypertension, and fatty li gael disease who presented to the ED with complaints of bradycardia. Patient reports that she was transitioned from betapace to metoprolol about 3 months ago and has had persistent bradycardia since. HR holding at 38 in ER. She reports that today she started to feel dizzy so she called cardiology who instructed her to come to ED. EKG shows sinus jorge. Her labs are significant for PT 17, WBC 13.8, Cr 3, BUN 77. Upon my assessment, patient has no complaints. ED provider wishes to admit for further evaluation and treatment. Allergies No Known Allergies Allergy (Unverified 01/25/22 17:18) Home medications list reviewed: Yes - Past Medical/Surgical History Diabetic: Yes -: Atrial Fibrillation -: Chronic Diastolic CHF -: Type 2 Diabetes, Non-Insulin Dependent -: Hypertension -: Fatty Liver Disease -: Hyperlipidemia -: Hysterectomy Psychosocial/ Personal History: Patient lives at home alone. - Family History Family History: Reviewed- Non-Contributory - Social History Smoking Status: Never smoker Alcohol use: No CD- Drugs: No Caffeine use: No Place of Residence: Home Review of Systems Dizzy Physical Examination - Physical Exam General: Alert, In no apparent distress, Oriented x3 HEENT: Atraumatic, PERRLA, EOMI, Sclerae nonicteric Neck: Supple, 2+ carotid pulse no bruit, No LAD, Without JVD or thyroid abnormality Respiratory: Clear to auscultation bilaterally, Normal air movement Cardiovascular: Regular rate/rhythm, Normal S1 S2 Gastrointestinal: Normal bowel sounds, No tenderness Musculoskeletal: No tenderness Integumentary: No rashes Neurological: Normal speech, Normal strength at 5/5 x4 extr, Normal tone, Normal affect - Studies Laboratory Data (last 24 hrs) 01/25/22 16:10: PT 17.5 H, INR 1.58 01/25/22 16:10: WBC 13.80 H, Hgb 11.2 L, Hct 36.2, Plt Count 272 01/25/22 16:10: Sodium 136, Potassium 3.9, BUN 77 H, Creatinine 3.06 H, Glucose 136 H, Magnesium 2.4 D Assessment and Plan - Problems (Diagnosis) (1) Symptomatic sinus bradycardia Current Visit: Yes Status: Acute (2) CHELSIE (acute kidney injury) Current Visit: Yes Status: Acute (3) Atrial fibrillation Current Visit: Yes Status: Chronic Qualifiers: Atrial fibrillation type: unspecified chronic Qualified Code(s): I48.20 - Chronic atrial fibrillation, unspecified; I48.2 - Chronic atrial fibrillation (4) CHF (congestive heart failure) Current Visit: Yes Status: Chronic Qualifiers: Heart failure type: diastolic Heart failure chronicity: chronic Qualified Code(s): I50.32 - Chronic diastolic (congestive) heart failure (5) Type 2 diabetes mellitus Current Visit: Yes Status: Chronic Qualifiers: Diabetes mellitus superintendent marine oil terminal insulin use: without senior care use Diabetes mellitus complication status: with hyperglycemia Qualified Code(s): E11.65 - Type 2 diabetes mellitus with hyperglycemia (6) Hypertension Current Visit: Yes Status: Chronic Qualifiers: Hypertension type: primary hypertension Qualified Code(s): I10 - Essential (primary) hypertension (7) Hyperlipidemia Current Visit: Yes Status: Chronic Qualifiers: Hyperlipidemia type: mixed hyperlipidemia Qualified Code(s): E78.2 - Mixed hyperlipidemia (8) Fatty liver disease, nonalcoholic Current Visit: Yes Status: Chronic - Plan -Bradycardia most likely secondary to metoprolol. Patient last took this morning. -Monitor patient on telemetry overnight -Cardiology consulted. Patient sees Dr. Maynard outpatient. -Echo ordered for morning -HOLD beta blockers -Lipid and thyroid panel in morning -ACHS accu checks with mild sliding scale insulin and diabetic diet. A1C ordered for morning. -Gentle IV hydration. Hold nephrotoxic drugs. Monitor renal function. -Monitor and replete electrolytes per protocol -Reconcile and continue home medications -Lovenox for DVT prophylaxis -Full code Discharge Plan: Home Plan to discharge in: 48 Hours - Advance Directives Does patient have a Living Will: Yes Does patient have a Durable POA for Healthcare: Yes - Code Status/Comfort Care Code Status Assessed: Yes (Full) Critical Care: No Time Spent Managing Pts Care (In Minutes): 50
[2022-01-25] MEDS ORDERED: ACETAMINOPHEN 500 MG TAB PO PRN (20:45)
[2022-01-25] MEDS ORDERED: ONDANSETRON 4 MG/2 ML VIAL IV PRN (20:45)
[2022-01-25] MEDS: INSULIN -REGULAR HUMAN 50 UNIT/0.5 ML ML SQ SCH (21:00)
[2022-01-25 22:44] VITALS: BMI 29.1
[2022-01-25] MEDS: NA CHLORIDE 0.9% 1,000 ML IV SCH (22:59)
[2022-01-26 01:55] LABS: Specific Gravity 1.009 (1.005-1.030); Urine Bilirubin NEGATIVE (Negative); Urine Blood Negative (Negative); Urine Clarity Clear (Clear); Urine Color Colorless (Yellow); Urine Glucose NEGATIVE (Negative); Urine Mucus Slight /HPF (None Seen); Urine Protein NEGATIVE (Negative); Urine Urobilinogen Normal (Normal)
[2022-01-26 03:44] LABS: Absolute Lymphocytes (CBC) 2.3 K/uL (0.7-4.9); Hematocrit 33.2 % (36.0-45.0); Lymphocytes % 16.4 % (15.3-44.8); MCV 78.5 fL (80-100); RBC Red Blood Cell Count 4.23 M/uL (3.86-4.86)
[2022-01-26 04:07] LABS: Magnesium 2.5 mg/dL (1.8-2.4); Potassium 3.9 mmol/L (3.5-5.1); Thyroid Stimulating Hormone 3.38 uIU/mL (0.360-3.740)
[2022-01-26] MEDS: INSULIN -REGULAR HUMAN 50 UNIT/0.5 ML ML SQ SCH ×4 (07:30→21:32)
[2022-01-26] MEDS ORDERED: POTASSIUM 25 MEQ EFFERV TAB PO ONE (08:14)
[2022-01-26] MEDS ORDERED: ENOXAPARIN 30 MG/0.3 ML SQ SCH (09:00)
[2022-01-26] MEDS: NA CHLORIDE 0.9% 1,000 ML IV SCH ×2 (11:14→21:32)
--- NOTE | 2022-01-26 12:47 | EKG ---
Test Date: 2022-01-25 Test Time: 23:31:29 [employer]ocket Propellant Plant Supervisor: RT Quinn MEASUREMENT RESULTS: Intervals: Rate: 37 TN: QRSD: 84 QT: 430 QTc: 337 [place]: P: TN: QRS: 65 T: 52 INTERPRETIVE STATEMENTS: Junctional bradycardia Nonspecific ST and T wave abnormality Abnormal ECG Compared to ECG 05/10/2021 02:46:11 ST (T wave) deviation now present Atrial fibrillation no longer present T-wave abnormality no longer present Electronically Signed On 01-26-22 12:46:32 CDT by Jaden Lawton
--- NOTE | 2022-01-26 12:48 | P.PN ---
Subjective Date of Service: 01/26/22 Primary Care Provider: Melanie Chief Complaint: Bradycardia Patient has no new complaints. Her heart rate is in the high 30s. Systolic blood pressure in the 100s. Physical Examination - Vital Signs Temperature: 97.2 F Blood Pressure: 103/61 Pulse: 45 Respirations: 18 Pulse Ox (%): 98 - Studies Laboratory Data (last 24 hrs) 01/25/22 16:10: PT 17.5 H, INR 1.58 01/25/22 16:10: WBC 13.80 H, Hgb 11.2 L, Hct 36.2, Plt Count 272 01/25/22 16:10: Sodium 136, Potassium 3.9, BUN 77 H, Creatinine 3.06 H, Glucose 136 H, Magnesium 2.4 D 01/25/22 15:29: PT Cancelled, INR Cancelled 01/25/22 15:29: WBC Cancelled, Hgb Cancelled, Hct Cancelled, Plt Count Cancelled 01/25/22 15:29: Sodium Cancelled, Potassium Cancelled, BUN Cancelled, Creatinine Cancelled, Glucose Cancelled, Magnesium Cancelled Assessment And Plan - Current Problems (Diagnosis) (1) Chronic diastolic heart failure Current Visit: Yes Status: Acute (2) CHELSIE (acute kidney injury) Current Visit: Yes Status: Acute (3) Symptomatic sinus bradycardia Current Visit: Yes Status: Acute (4) Atrial fibrillation Current Visit: Yes Status: Chronic Qualifiers: Atrial fibrillation type: unspecified chronic Qualified Code(s): I48.20 - Chronic atrial fibrillation, unspecified; I48.2 - Chronic atrial fibrillation (5) Hypertension Current Visit: Yes Status: Chronic Qualifiers: Hypertension type: primary hypertension Qualified Code(s): I10 - Essential (primary) hypertension (6) Type 2 diabetes mellitus Current Visit: Yes Status: Chronic Qualifiers: Diabetes mellitus long chain quiller tender insulin use: without nursing home use Diabetes mellitus complication status: with hyperglycemia Qualified Code(s): E11.65 - Type 2 diabetes mellitus with hyperglycemia - Plan Physical Exam General: Alert, In no apparent distress, Oriented x3 HEENT: Sclerae nonicteric Neck: Supple, Without JVD or thyroid abnormality Respiratory: Clear to auscultation bilaterally, Normal air movement Cardiovascular: Normal S1 S2, irregular, bradycardic. Gastrointestinal: Normal bowel sounds, No tenderness Musculoskeletal: No tenderness Integumentary: No rashes Neurological: Normal speech, Normal strength at 5/5 x4 extr. Plan: TSH within normal limits. Metoprolol on hold. Continue telemetry. Echocardiogram is pending Cardiology to evaluate. Resume Eliquis. Hold losartan and Aldactone due to CHELSIE. Nephrology consulted to evaluate. Continue gentle IV hydration. Activity as tolerated.
--- NOTE | 2022-01-26 12:49 | EKG ---
Test Date: 2022-01-25 Test Time: 15:26:24 Wood Cabinetmaker: MONROE MEASUREMENT RESULTS: Intervals: Rate: 43 SC: QRSD: 76 QT: 460 QTc: 388 [place]: P: SC: QRS: 81 T: 53 INTERPRETIVE STATEMENTS: Junctional bradycardia Nonspecific ST abnormality Abnormal ECG Compared to ECG 05/10/2021 02:46:11 Atrial premature complex(es) now present ST (T wave) deviation now present Atrial fibrillation no longer present T-wave abnormality no longer present Electronically Signed On 01-26-22 12:48:16 CDT by Jaden Lawton
--- NOTE | 2022-01-26 15:58 | P.CNS ---
Date of Consult: 01/26/22 Reason for Consult: CHELSIE, CKD Requesting Physician: marshall connell Primary Care Provider: Melanie Chief Complaint: Bradycardia History of Present Illness: Patient is a 76 year-old AAF with history of Afib, previously on Sotalol but reports it was stopped due to AE and she was put on Metoprolol and she has had varying degrees of bradycardic HR since. She reports her HR has been < 40 at times. She feels lightheaded occasionally, she has not had any syncope or pre syncope. No CP, she has some chronic, mild VELASQUEZ. She has some reported hx of chronic diastolic CHF and has chronically taken a larger dose of Lasix BID. She follows with Dr. Navarro for PCP/Applied Psychology Chair. non-insulin dependent type 2 diabetes, hypertension, and fatty liver disease who presented to the ED with complaints of bradycardia. Pt on admission to ER was found to have a low HR and EKG revealed junctional bradycardia. She is on telemonitoring currently. Labs also revealed CHELSIE with renal function tests worse compared with her baseline. She denies any N/V/D and reports good oral intake. Allergies No Known Allergies Allergy (Unverified 01/25/22 17:18) Home Medications: Allopurinol 300 mg PO DAILY 01/26/22 Apixaban [Eliquis] 5 mg PO BID 01/26/22 Cholecalciferol (Vitamin D3) [Vitamin D 5,000 Iu Cap] 5,000 unit PO DAILY 01/26/22 Ferrous Sulfate [Feosol] 325 mg PO DAILY 01/26/22 Furosemide 80 mg PO BIDL 01/26/22 Glimepiride [Amaryl] 2 mg PO DAILY 01/26/22 Metoprolol Succinate [Toprol Xl] 50 mg PO DAILY 01/26/22 Pravastatin Sodium 80 mg PO BEDTIME 01/26/22 Sitagliptin Phosphate [Januvia] 100 mg PO DAILY 01/26/22 Spironolactone 50 mg PO DAILY 01/26/22 - Past Medical/Surgical History Diabetic: Yes -: Atrial Fibrillation -: Chronic Diastolic CHF -: Type 2 Diabetes, Non-Insulin Dependent -: Hypertension -: Fatty Liver Disease -: Hyperlipidemia -: Hysterectomy -: Right Knee Surgery Psychosocial/ Personal History: Patient lives at home alone. - Family History Father Medical History: Heart disease, Diabetes - Social History Alcohol use: No CD- Drugs: No Caffeine use: No Place of Residence: Home Review of Systems General: Unremarkable Eyes: Unremarkable ENT: Unremarkable Respiratory: SOB with Excertion Cardiovascular: Other (Bradycardia) Gastrointestinal: Unremarkable Genitourinary: Unremarkable Musculoskeletal: Unremarkable Integumentary: Unremarkable Neurological: Unremarkable Lymphatics: Unremarkable Physical Examination Temp Pulse Resp BP Pulse Ox 97.2 F 45 L 18 103/61 98 01/26/22 12:49 01/26/22 12:49 01/26/22 12:49 01/26/22 12:49 01/26/22 12:49 General: Alert, Oriented x3 HEENT: Atraumatic, Normocephalic, EOMI Neck: Supple Respiratory: Clear to auscultation bilaterally, Normal air movement Cardiovascular: No edema (Bradycardic rate but mostly regular), No murmurs Gastrointestinal: Soft and benign, Non-distended Musculoskeletal: No swelling, No contractures, No erythema Integumentary: No rashes Neurological: Normal speech, Normal affect Laboratory Data (last 24 hrs) 01/25/22 16:10: PT 17.5 H, INR 1.58 01/25/22 16:10: WBC 13.80 H, Hgb 11.2 L, Hct 36.2, Plt Count 272 01/25/22 16:10: Sodium 136, Potassium 3.9, BUN 77 H, Creatinine 3.06 H, Glucose 136 H, Magnesium 2.4 D 01/25/22 15:29: PT Cancelled, INR Cancelled 01/25/22 15:29: WBC Cancelled, Hgb Cancelled, Hct Cancelled, Plt Count Cancelled 01/25/22 15:29: Sodium Cancelled, Potassium Cancelled, BUN Cancelled, Creatinine Cancelled, Glucose Cancelled, Magnesium Cancelled Conclusions/Impression: 1. Stage II CHELSIE 2. Underlying CKD Stage IIIb 3. Junctional bradycardia 4. Atrial fibrillation unspecified 5. Anemia unspecified -Pt's CHELSIE is likely multifactorial with a pre-renal element as pt was taking a larger maintenance loop diuretic dose along with an aldosterone antagonist chronically alongside recent hemodynamic effects of relatively lower BP, bradycardia and other. UA on admission bland supporting that this is more of a functional rather than intrinsic injury. Cont to hold lasix and spironolactone and hydrate gently. -Junctional bradycardia in the setting of beta chilo +/- SSS, other. Troponin was not elevated on admission but not clear if she has had an ischemic eval recently. Await Cardiology reccs. -BP soft on admission, cont to hold scheduled anti hypertensives, cont IVF, trend. -Avoid nephrotoxins, dose meds for reduced CrCl. Thank you for this referral, Hemant Lombardi MD, [facility]
[2022-01-26 17:02] VITALS: O2SAT 99
--- NOTE | 2022-01-26 19:22 | CON ---
Date of Consultation: 01/26/2022 Reason For Consultation: Bradycardia. History Of Present Illness: This is a 76-year-old female with history of atrial fibrillation, on Sheri dalila, and diastolic congestive heart failure, diabetes, hypertension, and presented to the emergency room with symptomatic bradycardia. She has started to feel short of breath on minimal exertion and d jose juan especially when she walks out in the heat and her heart rate is dropping to the mid to low 30s. No syncopal episode or passing-out spells. No chest pain. No other complaints. Past Medical History: As outlined above in the HPI. Medications: Refer reconciliation sheet for detailed list. Allergies: NO KNOWN DRUG ALLERGIES. Family History: No premature coronary artery disease or cancer. Social History: Does not smoke or drink. Does not use any drugs. Review of Systems: All systems were reviewed and they were negative. Physical Examination: Vital Signs: Reviewed. Head and Neck: Pupils are equal and reactive to light. Intact eye movements. No JVD. No cervical lymphadenopathy. Neck is supple. Thyroid is not enlarged. Lungs: Clear to auscultation bilaterally. No rhonchi, wheezing, or crackles. No accessory muscle u se. Heart: Regular rate and rhythm. No extra sounds. Abdomen: Soft, nontender. Bowel sounds positive. No organomegaly. No masses or hernia. No rigidi ty or rebound. Extremities: No edema, clubbing, or cyanosis. Intact pulses. Skin: No rash. Neurologic: Alert, awake, oriented x3. No acute focal deficits appreciated. Lymph Nodes: No cervical or axillary lymphadenopathy. Investigations: Labs were reviewed. Assessment And Recommendation: 1.Symptomatic bradycardia. Patient was on beta chilo. This was held. We will see how her heart react to that on the monitor and reassess within next 24 hours. If she starts improving, then we sina l keep her off beta chilo and monitor. If she continues to be bradycardic and in junctional rhythm like this off the beta chilo, then the pacemaker will be indicated. We will follow the patient wi th you and then make a decision as based on the patient's progress. 2.Atrial fibrillation, chronic, and she is in significant bradycardia at this time, symptomatic. We are holding her AV node blocking agents and then reassess in the next 24 hours and continue Eliquis. 3.Dyslipidemia, on statin. Continue current management. 4.Acute kidney failure, probably in part due to the dehydration, getting slowly better with the IV f luids, to be done very cautiously and monitor status clinically. /BRAYDON Voice ID: [id number] Report ID: [id number]
[2022-01-26] MEDS: APIXABAN 5 MG TABLET PO SCH (20:12)
[2022-01-26] MEDS: ATORVASTATIN 10 MG TAB PO SCH (20:12)
[2022-01-26] MEDS ORDERED: HOME MED 1 EA UNK (Pravastatin Sodium [Pravastatin Sodium] 80 MG Tablet) PO SCH ×2 (21:00)
[2022-01-27 04:24] LABS: Absolute Lymphocytes (CBC) 2.5 K/uL (0.7-4.9); Hematocrit 31.1 % (36.0-45.0); Lymphocytes % 25.7 % (15.3-44.8); MCV 78.1 fL (80-100); MPV 8.2 fL (7.6-11.3); RBC Red Blood Cell Count 3.98 M/uL (3.86-4.86)
[2022-01-27 04:34] LABS: Potassium 4.3 mmol/L (3.5-5.1)
[2022-01-27] MEDS: INSULIN -REGULAR HUMAN 50 UNIT/0.5 ML ML SQ SCH ×4 (07:30→21:00)
[2022-01-27] MEDS: APIXABAN 5 MG TABLET PO SCH (08:24)
[2022-01-27] MEDS: ALOGLIPTIN BENZOATE 6.25 MG TABLET PO SCH (08:28)
--- NOTE | 2022-01-27 08:59 | ECHO ---
HEIGHT: 5 ft 5 in WEIGHT: 173 lb 0 oz DATE OF STUDY: 01/26/[address]: Lexie Vazquez 2-DIMENSIONAL: YES M.MODE: YES DOPPLER: YES COLOR FLOW: YES TDS: NO PORTABLE: YES DEFINITY: NO BUBBLE STUDY: NO DIAGNOSIS: SYMPTOMATIC BRADYCARDIA CARDIAC HISTORY: CATHERIZATION: SURGERY: PROSTHETIC VALVE: PACEMAKER: MEASUREMENTS (cm) DIASTOLIC (NORMALS) SYSTOLIC (NORMALS) IVSd 0.9 (0.6-1.2) LA Diam 4.2 (1.9-4.0) LVEF 60% LVIDd 4.9 (3.5-5.7) LVIDs 3.3 (2.0-3.5) %FS 32% LVPWd 1.1 (0.6-1.2) Ao Diam 2.6 (2.0-3.7) 2 DIMENSIONAL ASSESSMENT: RIGHT ATRIUM: ENLARGED LEFT ATRIUM: ENLARGED RIGHT VENTRICLE: NORMAL LEFT VENTRICLE: NORMAL TRICUSPID VALVE: SEVERE TRICUSPID REGURGITATION MITRAL VALVE: MILD MITRAL REGURGITATION PULMONIC VALVE: NORMAL AORTIC VALVE: NORMAL PERICARDIAL EFFUSION: NONE AORTIC ROOT: NORMAL LEFT VENTRICULAR WALL MOTION: NORMAL. DOPPLER/COLOR FLOW: SEE BELOW. COMMENTS: NORMAL LEFT VENTRICULAR EJECTION FRACTION 55-60%. NORMAL WALL MOTION. SEVERE TRICUSPID REGURGITATION. MILD MITRAL REGURGITATION. BI-ATRIAL ENLARGEMENT. MODERATE PULMONARY HYPERTENSION WITH RIGHT VENTRICULAR SYSTOLIC PRESSURE OF 55-60mmHg. TECHNOLOGIST: ROSA JUAREZ
[2022-01-27] MEDS ORDERED: HOME MED 1 EA UNK (Sitagliptin Phosphate [Januvia] 50 MG Tablet) PO SCH (09:00)
--- NOTE | 2022-01-27 10:50 | EKG ---
Test Date: 2022-01-27 Test Time: 10:38:24 Welding Tester: LADAN MEASUREMENT RESULTS: Intervals: Rate: 36 CT: QRSD: 84 QT: 516 QTc: 399 [place]: P: CT: QRS: 55 T: 73 INTERPRETIVE STATEMENTS: Junctional bradycardia ST abnormality, possible digitalis effect Abnormal ECG Compared to ECG 01/25/2022 23:31:29 No significant changes Electronically Signed On 01-27-22 10:49:45 CDT by Rafa Maynard
--- NOTE | 2022-01-27 11:24 | P.PN ---
Date of Service: 01/27/22 Nephrology note: (S) Pt remains bradycardic on tele monitoring, pt asymptomatic mostly, has been OOB and denies lightheadedness, shortness of breath or other. (O) Vitals reviewed in the EMR General: Alert, Oriented x3 HEENT: Atraumatic, Normocephalic, EOMI Neck: Supple Respiratory: Clear to auscultation bilaterally, Normal air movement Cardiovascular: No edema (Bradycardic rate but mostly regular), No murmurs Gastrointestinal: Soft and benign, Non-distended Musculoskeletal: No swelling, No contractures, No erythema Integumentary: No rashes Neurological: Normal speech, Normal affect Laboratory Data (last 24 hrs) Reviewed in the EMR Conclusions/Impression: 1. Stage II CHELSIE -resolved 2. Underlying CKD Stage IIIb 3. Junctional bradycardia 4. Atrial fibrillation unspecified 5. Anemia unspecified -Pt's CHELSIE was likely multifactorial with a pre-renal element as pt was taking a larger maintenance loop diuretic dose along with an aldosterone antagonist chronically alongside recent hemodynamic effects of relatively lower BP, bradycardia and other. UA on admission bland supporting that this is more of a functional rather than intrinsic injury. Did hold lasix and spironolactone and hydrated gently, Cr levels trending downwards. Will d/c IVF. -Junctional bradycardia in the setting of beta chilo +/- SSS, other. Troponin was not elevated on admission but not clear if she has had an ischemic eval recently. HR remains low, past Metoprolol's typical half-life, will await plan for PPM or other from Cardiology. -BP soft on admission, currently maintaining, cont to hold scheduled anti hypertensives -Avoid nephrotoxins, dose meds for reduced CrCl. Hemant Lombardi MD, [facility]
--- NOTE | 2022-01-27 14:34 | P.PN ---
Subjective Date of Service: 01/27/22 Primary Care Provider: Melanie Chief Complaint: Bradycardia Patient has no complaints. She denies any dizziness. Her heart rate remained in the 30s. Physical Examination - Vital Signs Temperature: 97.3 F Blood Pressure: 110/62 Pulse: 35 Respirations: 16 Pulse Ox (%): 98 Assessment And Plan - Current Problems (Diagnosis) (1) Chronic diastolic heart failure Current Visit: Yes Status: Acute (2) CHELSIE (acute kidney injury) Current Visit: Yes Status: Acute (3) Symptomatic sinus bradycardia Current Visit: Yes Status: Acute (4) Atrial fibrillation Current Visit: Yes Status: Chronic Qualifiers: Atrial fibrillation type: unspecified chronic Qualified Code(s): I48.20 - Chronic atrial fibrillation, unspecified; I48.2 - Chronic atrial fibrillation (5) Hypertension Current Visit: Yes Status: Chronic Qualifiers: Hypertension type: primary hypertension Qualified Code(s): I10 - Essential (primary) hypertension (6) Type 2 diabetes mellitus Current Visit: Yes Status: Chronic Qualifiers: Diabetes mellitus supervisor intermediates insulin use: without skilled nursing use Diabetes mellitus complication status: with hyperglycemia Qualified Code(s): E11.65 - Type 2 diabetes mellitus with hyperglycemia - Plan Physical Exam General: Alert, In no apparent distress, Oriented x3 Neck: Without JVD or thyroid abnormality Respiratory: Clear to auscultation bilaterally, Normal air movement Cardiovascular: Normal S1 S2, irregular, bradycardic. Gastrointestinal: Normal bowel sounds, No tenderness Integumentary: No rashes Neurological: Normal speech, Normal strength at 5/5 x4 extr. Plan: TSH within normal limits. Metoprolol on hold. Repeat EKG shows persistent junctional rhythm. Echocardiogram demonstrated severe atherosclerotic regurgitation and moderate pulmonary hypertension. Seen by cardiology Dr. Lawton. Patient may need a pacemaker. Hold Eliquis in case patient needs a pacemaker. Hold losartan and Aldactone due to CHELSIE. Nephrology input appreciated. IV fluid discontinued. Monitor renal function.
[2022-01-27] MEDS: ATORVASTATIN 10 MG TAB PO SCH (21:12)
--- NOTE | 2022-01-27 21:58 | PN ---
Date of Progress Note: 01/27/2022 Subjective: Seen by bedside. Doing clinically well. No symptoms. Heart rate is improving slowly. Review of Systems: No chest pain, shortness of breath, orthopnea, or cough. No nausea, vomiting, or diarrhea. No abdom inal pain. No dysuria, polyuria, or urinary urgency. All other systems reviewed are negative. Physical Examination: Vital Signs: Temperature is 97.3, heart rate is 35 to 40, breathing at 18, blood pressure is 110/62, saturating 98% on room air. General: Pleasant elderly female, in no apparent distress. Head and Neck: Pupils are equal, reactive to light. Intact eye movements. No JVD. No cervical lym phadenopathy. Neck is supple. Thyroid is not enlarged. Lungs: Clear to auscultation bilaterally. No rhonchi, rales, or crackles. No accessory muscle use. Heart: Irregularly irregular. No extra sounds. Abdomen: Soft and nontender. Bowel sounds positive. No organomegaly. No mass or hernia. No rigid ity or rebound. Extremities: No edema, clubbing, or cyanosis. Intact pulses. Skin: No rash noted. Neurologic: Alert, awake, and oriented x3. No acute focal deficits appreciated. Investigations: Labs were reviewed. Assessment And Recommendation: 1.Symptomatic bradycardia in a patient, who was on a beta-chilo, which was held and her heart rate is getting better slowly and she is in atrial fibrillation. So, at this point, I will monitor her f or another day and tomorrow, we will have her walk around. If her heart rate picks up and she is asy mptomatic, then we will hold off on pacemaker implantation. 2.Atrial fibrillation with a slow ventricular rate right now. We will monitor clinically and reintr oduce the AV node blocking agents at a lower dose if needed if the heart rate goes up. 3.Acute kidney failure, probably due to dehydration and this is improving. Continue gentle IV fluid s. SR/MODL Voice ID: [id number] Report ID: [id number]
[2022-01-28 03:51] LABS: Absolute Lymphocytes (CBC) 2.1 K/uL (0.7-4.9); Hematocrit 30.7 % (36.0-45.0); Lymphocytes % 20.7 % (15.3-44.8); MCV 79.1 fL (80-100); MPV 7.7 fL (7.6-11.3); RBC Red Blood Cell Count 3.88 M/uL (3.86-4.86)
[2022-01-28 04:07] LABS: Potassium 4.2 mmol/L (3.5-5.1)
[2022-01-28] MEDS: INSULIN -REGULAR HUMAN 50 UNIT/0.5 ML ML SQ SCH ×3 (07:30→16:24)
[2022-01-28] MEDS: ALOGLIPTIN BENZOATE 6.25 MG TABLET PO SCH (07:39)
--- NOTE | 2022-01-28 11:18 | P.PN ---
Nephrology note: (S) Pt remains on tele monitoring, did walk earlier today, did feel dizzy and reports chronic VELASQUEZ. (O) Vitals reviewed in the EMR General: Alert, Oriented x3 HEENT: Atraumatic, Normocephalic, EOMI Neck: Supple Respiratory: Clear to auscultation bilaterally, Normal air movement Cardiovascular: No edema (Bradycardic rate but mostly regular), No murmurs Gastrointestinal: Soft and benign, Non-distended Musculoskeletal: No swelling, No contractures, No erythema Integumentary: No rashes Neurological: Normal speech, Normal affect Laboratory Data (last 24 hrs) Reviewed in the EMR Conclusions/Impression: 1. Stage II CHELSIE -resolved 2. Underlying CKD Stage IIIb/IV 3. Junctional bradycardia 4. Atrial fibrillation unspecified 5. Anemia unspecified -Pt's CHELSIE was likely multifactorial with a pre-renal element as pt was taking a larger maintenance loop diuretic dose along with an aldosterone antagonist chronically alongside recent hemodynamic effects of relatively lower BP, bradycardia and other. UA on admission bland supporting that this is more of a functional rather than intrinsic injury. Did hold lasix and spironolactone and hydrated gently, Cr levels trending downwards. Did d/c IVF. -Junctional bradycardia in the setting of beta chilo +/- SSS, other. Troponin was not elevated on admission but not clear if she has had an ischemic eval recently. HR remains low, past Metoprolol's typical half-life, will await plan for PPM or other from Cardiology. -BP soft on admission, currently maintaining, cont to hold Aldactone but in light of echo findings, will resume Lasix at lower dose from tmrw -Bi-atrial enlargement, severe TR reported, pulm HTN unspecified -will restart Lasix from tmrw but at a lower dose than what she was taking at home. -Avoid nephrotoxins, dose meds for reduced CrCl. Hemant Lombardi MD, [facility]
--- NOTE | 2022-01-28 12:51 | P.DS ---
Admission Date: 01/25/22 Discharge Date: 01/28/22 Primary Care Provider: Melanie Disposition: ROUTINE DISCHARGE Discharge Condition: FAIR Reason for Admission: Bradycardia Consultations: Cardiology-Dr. Lawton - Problems (1) Chronic diastolic heart failure Status: Acute (2) CHELSIE (acute kidney injury) Status: Acute (3) Symptomatic sinus bradycardia Status: Acute (4) Atrial fibrillation Status: Chronic Qualifiers: Atrial fibrillation type: unspecified chronic Qualified Code(s): I48.20 - Chronic atrial fibrillation, unspecified; I48.2 - Chronic atrial fibrillation (5) Hypertension Status: Chronic Qualifiers: Hypertension type: primary hypertension Qualified Code(s): I10 - Essential (primary) hypertension (6) Type 2 diabetes mellitus Status: Chronic Qualifiers: Diabetes mellitus intermediate accountant insulin use: without intermediate use Diabetes mellitus complication status: with hyperglycemia Qualified Code(s): E11.65 - Type 2 diabetes mellitus with hyperglycemia Brief History of Present Illness: Patient is a 76 year-old female with history of afib on eliquis, chronic diastolic CHF, non-insulin dependent type 2 diabetes, hypertension, and fatty liver disease who presented to the ED with complaints of bradycardia. Patient reports that she was transitioned from betapace to metoprolol about 3 months ago and has had persistent bradycardia since. HR was 38 in ER. She reported that today she started to feel dizzy so she called cardiology who instructed her to come to ED. EKG shows sinus jorge. Her labs are significant for PT 17, WBC 13.8, Cr 3, BUN 77. Hospitalized for further management. Hospital Course: Patient admitted to the medical floor for further management. Her troponin was held and Eliquis continued for atrial fibrillation. Patient seen in consultation by cardiology who recommended no rate control medication for now and a consideration for transfer for pacemaker insertion if her heart rate does not improve or respond to exercise. Her heart rate improved after metoprolol was discontinued. Heart rate also responded well to exercise increasing to 71. She was seen in consultation by nephrology for acute on chronic kidney disease. Her Lasix dose was reduced considerably from 80 mg twice daily to 20 mg twice daily. She was also treated briefly with IV fluid. Her serum creatinine trended down with these measures. Patient seen by cardiology-Dr. Lawton and deemed stable for discharge. Patient informed to follow-up with cardiology to continue monitoring her for need for pacemaker. Vital Signs/Physical Exam: Temp Pulse Resp BP Pulse Ox 97.5 F 56 16 124/63 100 01/28/22 12:00 01/28/22 12:00 01/28/22 12:00 01/28/22 12:00 01/28/22 12:00 General: Alert, In no apparent distress, Oriented x3 HEENT: Normocephalic, Mucous membr. moist/pink Neck: JVD not distended Respiratory: Clear to auscultation bilaterally, Normal air movement Cardiovascular: Normal S1 S2, Irregular heart rate/rhythm Gastrointestinal: Normal bowel sounds, Soft and benign, Non-distended, No tenderness Musculoskeletal: No swelling Integumentary: No rashes, No cyanosis Neurological: Normal strength at 5/5 x4 extr, Cranial nerves 3-12 intact Laboratory Data at Discharge: WBC 10.00 K/uL (4.3-10.9) 01/28/22 03:41 Hgb 9.7 g/dL (12.0-15.0) L 01/28/22 03:41 Hct 30.7 % (36.0-45.0) L 01/28/22 03:41 Plt Count 195 K/uL (152-406) 01/28/22 03:41 PT 17.5 SECONDS (9.5-12.5) H 01/25/22 16:10 INR 1.58 01/25/22 16:10 Sodium 141 mmol/L (136-145) 01/28/22 03:41 Potassium 4.2 mmol/L (3.5-5.1) 01/28/22 03:41 BUN 46 mg/dL (7-18) H 01/28/22 03:41 Creatinine 2.15 mg/dL (0.55-1.3) H 01/28/22 03:41 Glucose 133 mg/dL (74-106) H 01/28/22 03:41 Magnesium 2.5 mg/dL (1.8-2.4) H 01/26/22 03:10 Triglycerides 141 mg/dL (<150) 01/26/22 03:10 Cholesterol 126 mg/dL (<200) 01/26/22 03:10 HDL Cholesterol 30 mg/dL (40-60) L 01/26/22 03:10 Cholesterol/HDL Ratio 4.20 01/26/22 03:10 Home Medications: Allopurinol 300 mg PO DAILY 01/26/22 Apixaban [Eliquis] 5 mg PO BID 01/26/22 Cholecalciferol (Vitamin D3) [Vitamin D 5,000 IU Cap*] 5,000 unit PO DAILY 01/26/22 Ferrous Sulfate [Ferrous Sulfate*] 325 mg PO DAILY 01/26/22 Glimepiride [Amaryl*] 2 mg PO DAILY 01/26/22 Pravastatin Sodium 80 mg PO BEDTIME 01/26/22 Sitagliptin Phosphate [Januvia] 100 mg PO DAILY 01/26/22 Spironolactone 50 mg PO DAILY 01/26/22 Furosemide [Lasix*] 20 mg PO BIDL #60 tab 01/28/22 New Medications: Furosemide [Lasix*] 20 mg PO BIDL #60 tab Diet: AHA Activity: Ad moe Followup: Rocky Navarro DO [Primary Care Provider] - 1-2 Weeks (Call to schedule appointment) Jaden Lawton MD [ACTIVE - CAN ADMIT] - 1-2 Weeks (Call to schedule appointment) Time spent managing pt's care (in minutes): 34
[2022-01-28 17:08] VITALS: BP 137/73; TEMP 97.6
--- NOTE | 2022-01-28 23:25 | PN ---
Date of Progress Note: 01/28/2022 Subjective: Seen at bedside. She is stable; however, her heart rate still dips down to high 30s and mid 40s. When she got up and walked, heart rate went up to the mid 70s. No syncopal episodes. No dizziness. Review of Systems: No chest pain, shortness of breath, orthopnea, or cough. No nausea, vomiting, or diarrhea. No abdom inal pain. No dysuria, polyuria, or urinary urgency. No skin rash. All other systems reviewed and are negative. Objective: Vital Signs: Reviewed. Head and Neck: Pupils are equal and reactive to light. Intact eye movements. No JVD. No cervical lymphadenopathy. Neck: Supple. Thyroid is not enlarged. Lungs: Clear to auscultation bilaterally. No rhonchi, rales, or crackles. No accessory muscle use. Heart: Irregularly irregular. No extra sounds. Abdomen: Soft, nontender. Bowel sounds positive. No organomegaly. No masses or hernia. No rigidi ty or rebound. Extremities: No edema, clubbing, or cyanosis. Intact pulses. Skin: No rash. Neurologic: Alert, awake, and oriented x3. No acute focal deficits appreciated. Investigations: Creatinine is 2.15, is improving. Assessment And Recommendation: 1.Atrial fibrillation with slow ventricular response. This is improving after holding the beta-bloc ker. Heart rate is much better at this point. Continue to monitor and she might need a beta-chilo to be introduced, however, at a much lower dose. 2.Acute renal failure, improving. Recommend to continue hydration for at least 1 more day and reassess creatinine tomorrow as she is nicely improving. SR/MODL Voice ID: [id number] Report ID: [id number]
[2022-01-29] MEDS ORDERED: FUROSEMIDE 20 MG TABLET PO SCH (09:00)
== END 2022-01-28 18:08 | disposition home or self-care (01) | DRG 309 ==
LOC: ER 14:52 → ERHOLD 19:34 → 4TH 20:28
PROVIDERS: ADMIT Internal Medicine; ATTEND Internal Medicine
DX: R00.1 Bradycardia, unspecified (principal); N17.9 Acute kidney failure, unspecified; I50.32 Chronic diastolic (congestive) heart failure; I13.0 Hypertensive heart and chronic kidney disease with heart failure and stage 1 through stage 4 chronic kidney disease, or unspecified chronic kidney disease; N18.4 Chronic kidney disease, stage 4 (severe); E11.22 Type 2 diabetes mellitus with diabetic chronic kidney disease; E11.65 Type 2 diabetes mellitus with hyperglycemia; D63.1 Anemia in chronic kidney disease; I48.20 Chronic atrial fibrillation, unspecified; I27.20 Pulmonary hypertension, unspecified; E86.0 Dehydration; K76.0 Fatty (change of) liver, not elsewhere classified; E78.2 Mixed hyperlipidemia; T44.7X5A Adverse effect of beta-adrenoreceptor antagonists, initial encounter; Z60.2 Problems related to living alone; Z88.8 Allergy status to other drugs, medicaments and biological substances; Z79.84 Long term (current) use of oral hypoglycemic drugs; Z79.01 Long term (current) use of anticoagulants; Z79.899 Other long term (current) drug therapy; Z90.710 Acquired absence of both cervix and uterus; Z20.822 Contact with and (suspected) exposure to COVID-19
CPT/HCPCS: 36415; 71045; 80048; 80061; 81001; 82947; 83036; 83735; 83880; 84439; 84443; 84484; 85025; 85610; 87811; 93005; 93306; 99285; J1650; J1815; J7030